=== PATIENT | female | born 1990 | race Caucasian/White ===

== ENCOUNTER → 2018-10-30 14:40 | Outpatient (CLI) | payer BC, MEDICAID, SELFPAY ==
[2017-04-03 06:49] VITALS: BMI 35.9
[2018-11-05 10:51] LABS: HPV Reflexed? NOT INDICATED
== END ==
PROVIDERS: Family Provider Family Medicine; PCP Family Medicine; Visit Provider Obstetrics & Gynecology
DX: Z12.4 Encounter for screening for malignant neoplasm of cervix (principal)
CPT/HCPCS: 88175; G0145

== ENCOUNTER 2018-11-08 07:52 | Emergency (ER) | payer BC, MEDICAID, SELFPAY ==
[2018-11-08 07:54] VITALS: PULSE 87; RESP 18; TEMP 36.1; O2SAT 98; BMI 29.7
[2018-11-08 07:56] VITALS: BP 118/42
[2018-11-08] MEDS: Dicyclomine 10 MG Capsule 20 MG PO (08:27)
[2018-11-08] MEDS: Ondansetron 4 MG/2 ML Vial IV (08:27)
[2018-11-08 08:43] LABS: Bacteria 0 SEEN /hpf (None Seen); Mucous, Urine 0 SEEN /hpf (<or=2+); Red Blood Cells-Urine 0 SEEN /hpf (0-5); White Blood Cells 0 SEEN /hpf (0-5)
[2018-11-08 08:58] LABS: Internal QC Validated? YES +Cl - CLEAR BKGD; Pregnancy, Urine Negative Negative
[2018-11-08 09:03] LABS: Color, Urine Yellow (Yellow); Glucose, Dipstick Normal (Normal); Ketone-Dipstick Negative (Negative); Leukocyte Esterase-Dipstick 25 /ul (Negative); Nitrite-Dipstick Negative (Negative); Occult Blood-Urine 25 /ul (Negative); Protein-Dipstick Negative (Negative); Urine Bilirubin Dipstick Negative (Negative); Urine Clarity Sl. Cloudy (Clear); Urine Urobilinogen Normal (Normal)
[2018-11-08 09:04] LABS: Squamous Epithelial Cells - UA 5-10 SEEN /hpf (5-10)
[2018-11-08 09:06] LABS: ALB/GLOB Ratio 0.8 RATIO (0.9-2.4); AST(SGOT) 35 U/L (15-37); Alanine Aminotransfer ALT/SGPT 29 U/L (13-56); Albumin, Serum 3.3 g/dL (3.2-5.0); Alkaline Phosphatase 87 U/L (45-117); Anion Gap 7 (5-15); BUN 9 mg/dL (7-18); BUN/Creat Ratio 13.6 RATIO (10-20); Calcium,Total 8.6 mg/dL (8.5-10.1); Chloride 109 mmol/L (98-107); Creatinine, Serum 0.66 mg/dL (0.55-1.02); EST Glomerular Filtration Rate 113 mL/min (>60); Est Glom Filt Rate - Afr Amer 137 mL/min (>60); Estimated Creatinine Clearance 110.56 ml/min; Globulin 3.9 g/dL (2.2-4.2); Glucose 87 mg/dL (74-106); Lipase 57 U/L (73-393); Potassium 4.4 mmol/L (3.5-5.1); Protein, Total 7.2 g/dL (6.4-8.2); Sodium Level 139 mmol/L (136-145)
--- NOTE | 2018-11-08 09:06 | ED.VISSUMM ---
- ER Visit Summary Date of Service: 11/08/18 Chief Complaint: Abdominal pain History of Present Illness: The patient is a 28 F who states that beginning Saturday at work she is had severe upper abdominal pain across the abdomen going into her back. She had vomiting this morning at 070 0 hours. She notes constipation. She notes that this type of pain is been present off and on for several weeks. Though it has not been this bad until Saturday. She states that she always saw CASHIERS SUPERVISOR. It was felt not to be related to her control. She is a smoker. She did have some alcohol last night. No fevers. She has no surgical history. Physical Examination: Afebrile vital signs are stable Gen: Well-nourished well-developed patient is sitting on the bed with her knees drawn up. Head: Normocephalic atraumatic Eyes: Perrl EOMI ENT: TMs clear no rhinorrhea moist mucous membranes Neck: Supple no lymphadenopathy no JVD nontender CVS: Regular rate rhythm no murmurs normal S1-S2 Respiratory: No distress clear to auscultation bilaterally chest nontender Abdomen: Soft diffusely tender nondistended normal bowel sounds no masses Back: Nontender Extremity: Nontender no edema Skin: Normal color no rash Neuro: alert orientated ?3 CN II-XII intact normal strength sensation reflexes gait cerebellar Psych: Normal affect normal mood Test Results: White count returns elevated at 18.1. Normal liver and lipase. test negative. CT down pelvis demonstrates cholelithiasis and possibly pericholecystic fluid. Gallbladder ultrasound was obtained which demonstrates cholelithiasis no pericholecystic fluid negative Brennan sign. There is concern for choledocholithiasis. Repeat white blood cell count is now normal. Her pain is improved after Bentyl Zofran Toradol and morphine. I spoke with on-call surgery. Patient will be started on Pepcid [place] and Zofran with follow-up in the office return if worsening or concerns. Impression: 1. Acute abdominal pain 2. Cholelithiasis This note was generated with [employer] dictation software. It may contain incorrect words, spelling, and punctuation that were not noted in review of the chart prior to signing ED Disposition - Plan for ED Patient: Disposition: Home or Assisted Living Instructions: What are Gallstones? Prescriptions: Hydrocodone Bitart/Apap 5-325 [[place] 5MG-325MG] 1 tab PO Q6H PRN PRN 3 Days #12 tab PRN Reason: Pain Ondansetron [Zofran Odt] 4 mg PO Q6H PRN PRN #20 tab PRN Reason: Nausea Famotidine [Pepcid] 20 mg PO BID #28 tab Referrals: Kimberly Barger MD [STAFF PHYSICIAN] - (call on Saturday to arrange follow up)
[2018-11-08 09:15] LABS: Absolute Lymphocyte Count 1.45 X10^3/ul (0.83-4.51); Absolute Neutrophil Count 15.6 X10^3/uL (2.0-7.7); Basophil# 0.03 X10^3/uL; Basophil% 0.2 % (0-1); Eosinophil# 0.16 X10^3/uL; Eosinophils% 0.9 % (0-5); Hematocrit 42.2 % (37-47); Hemoglobin 13.7 g/dl (12.0-15.0); Lymphocyte # 1.45 X10^3/ul (4.0); Mean Corp Hgb Conc 32.5 g/gl (32-36); Mean Corpuscular Hgb 29.1 pg (27.0-32.0); Mean Corpuscular Volume 89.6 fL (81-99); Mean Platelet Vol. 9.8 fl (6.2-12.0); Monocyte# 0.74 X10^3/uL; Monocyte% 4.1 % (0-10); Neutrophil # 15.62 X10^3/uL (2.7-7.7); Neutrophil % 86.4 % (47-70); Platelet Count 279 K/mm3 (150-450); RBC Distribution Width CV 13.9 % (11.6-14.6); RBC Distribution Width SD 44.8 fl (35.1-43.9); Red Blood Count 4.71 M/mm3 (4.2-5.4); White Blood Count 18.1 K/mm3 (4.4-11.0)
[2018-11-08 09:16] LABS: POSITIVE COUNT NO; POSITIVE DIFFERENTIAL NO; POSITIVE MORPHOLOGY NO
--- NOTE | 2018-11-08 09:20 | CT_ITS ---
STUDY: CT ABDOMEN AND PELVIS WITH CONTRAST REASON FOR EXAM: Female, 28 years old. Upper abdominal pain radiating to back for several weeks worse over the last 3 days, leukocytosis RADIATION DOSAGE (If Supplied By Facility): CTDIvol = ( 14.40 ) mGy, DLP = ( 870.36 ) mGycm TECHNIQUE: Transaxial images were obtained from the dome of the diaphragm to the symphysis pubis with oral contrast. 100mL ml of Isovue 300 contrast was administered. Sagittal and coronal images were reconstructed. Individualized dose optimization techniques were used for this CT. COMPARISON: None. FINDINGS: The visualized lung bases are unremarkable. The visualized portions of the heart are within normal limits. Normal liver. The gallbladder is distended with trace pericholecystic fluid evident on coronal image 41. There are linear calcifications within the gallbladder wall, particularly at the fundus. Normal spleen. Normal pancreas. Normal bilateral adrenal glands. Normal right kidney. Normal left kidney. Normal visualized stomach. Normal small intestine. Normal colon. The appendix is visualized and appears normal. Normal abdominal aorta. Normal inferior vena cava. Normal retroperitoneum. Normal urinary bladder. The uterus is retroflexed. No pelvic free fluid. Simple appearing dominant follicle or cyst of the left ovary measures 3.4 cm. Normal abdominal wall. Normal osseous structures. CT/Abdomen/Pelvis WITH Contrast IMPRESSION: 1. Trace pericholecystic fluid suggests possibility of cholecystitis (based on history of right upper quadrant pain) but can also be seen in other processes (hepatitis, hypoalbuminemia, etc.). 2. Gallbladder wall calcifications (porcelain gallbladder). Electronically Signed: Govind Starkey MD at 11:48 EST , Service support ,
[2018-11-08 10:04] VITALS: BP 114/60; PULSE 69; RESP 16; O2SAT 100
[2018-11-08] MEDS: Ketorolac 30 MG/ML Syringe IV (10:42)
--- NOTE | 2018-11-08 11:30 | US_ITS ---
STUDY: ABDOMINAL ULTRASOUND - RIGHT UPPER QUADRANT REASON FOR VISIT: Female, 28 years old. Right upper quadrant pain for a couple weeks TECHNIQUE: Ultrasound evaluation of the right upper quadrant was performed with real-time and static pace-scale imaging. TECHNICAL QUALITY: Adequate. COMPARISON: None. FINDINGS: Liver: The liver measures 16 cm. There is normal echogenicity of the liver. The bile ducts are within normal limits. There is hepatic color flow. The direction of portal flow is hepatopetal. There is no demonstrated mass lesion. Gallbladder: Normal distended gallbladder. The gallbladder wall measures 2.5 mm. There is a negative sonographic Brennan's sign. There is no pericholecystic fluid. There are multiple echogenic structures within the gallbladder, consistent with multiple gallstones. Tiny nonshadowing, nonmobile echogenic foci of the gallbladder wall could represent small polyps, most commonly cholesterol polyps. These measure less than 5 mm. Common Bile Duct (C.B.D.): The common bile duct measures 4.5 mm. Very small echogenic focus in the common duct is suggested (with an arrow) by technologist on image timed 12:22:22. Pancreas: There is normal echogenicity of the pancreas. There is no demonstrated pancreatic mass or cyst. Right Kidney: Normal size of the right kidney. The right kidney measures 9.8 cm. Normal renal cortex. The right cortex measures 1.4 cm. There is no demonstrated renal mass or cyst. There is no right hydronephrosis. US/Gallbladder IMPRESSION: 1. Cholelithiasis without sonographic evidence of acute cholecystitis. 2. Possible tiny (2 mm) choledocholithiasis. No intrahepatic or extrahepatic bile duct dilation. 3. Subcentimeter gallbladder wall polyps, likely cholesterol polyps. Electronically Signed: Govind Starkey MD at 13:02 EST , Service support ,
[2018-11-08 12:52] VITALS: BP 116/73; PULSE 61; RESP 14; O2SAT 100
[2018-11-08] MEDS: Morphine 4 MG/ML Syringe IV (13:49)
[2018-11-08 14:05] LABS: Absolute Lymphocyte Count 1.62 X10^3/ul (0.83-4.51); Absolute Neutrophil Count 7.7 X10^3/uL (2.0-7.7); Basophil# 0.01 X10^3/uL; Basophil% 0.1 % (0-1); Eosinophil# 0.03 X10^3/uL; Eosinophils% 0.3 % (0-5); Hematocrit 40.8 % (37-47); Hemoglobin 13.4 g/dl (12.0-15.0); Lymphocyte # 1.62 X10^3/ul (4.0); Lymphocyte % 16.4 % (19-41); Mean Corp Hgb Conc 32.8 g/gl (32-36); Mean Corpuscular Hgb 29.5 pg (27.0-32.0); Mean Corpuscular Volume 89.9 fL (81-99); Mean Platelet Vol. 9.4 fl (6.2-12.0); Monocyte# 0.48 X10^3/uL; Monocyte% 4.9 % (0-10); Neutrophil # 7.69 X10^3/uL (2.7-7.7); Platelet Count 259 K/mm3 (150-450); RBC Distribution Width CV 13.8 % (11.6-14.6); RBC Distribution Width SD 44.9 fl (35.1-43.9); Red Blood Count 4.54 M/mm3 (4.2-5.4); White Blood Count 9.9 K/mm3 (4.4-11.0)
[2018-11-08 14:16] LABS: Neutrophil % 78.1 % (47-70); POSITIVE COUNT YES; POSITIVE DIFFERENTIAL YES; POSITIVE MORPHOLOGY YES
== END 2018-11-08 14:59 | disposition home or self-care (01) ==
PROVIDERS: Emergency Provider Emergency Medicine
DX: R10.9 Unspecified abdominal pain (principal); K80.70 Calculus of gallbladder and bile duct without cholecystitis without obstruction; K59.00 Constipation, unspecified; F17.200 Nicotine dependence, unspecified, uncomplicated; Z79.3 Long term (current) use of hormonal contraceptives
CPT/HCPCS: 36415; 74177; 76705; 80053; 81001; 81025; 83690; 85025; 96374; 96375; 99284; Q9967; A4216; J2405

== ENCOUNTER → 2018-11-10 10:13 | Outpatient (CLI) | payer BC, MEDICAID, SELFPAY ==
[2018-11-08 07:54] VITALS: BMI 29.7
[2018-11-10 10:59] LABS: AST(SGOT) 31 U/L (15-37); Alanine Aminotransfer ALT/SGPT 104 U/L (13-56); Albumin, Serum 3.5 g/dL (3.2-5.0); Alkaline Phosphatase 100 U/L (45-117); Amylase 34 U/L (25-115); Bilirubin, Direct 0.11 mg/dL (0.00-0.30); Globulin 3.9 g/dL (2.2-4.2); Protein, Total 7.4 g/dL (6.4-8.2)
[2018-11-10 11:45] LABS: Lipase 70 U/L (73-393)
[2018-11-10 18:20] LABS: Xtra Tube EP Lab EXTRA TUBE
== END ==
PROVIDERS: Referring Provider Surgery; Visit Provider Surgery
DX: K80.20 Calculus of gallbladder without cholecystitis without obstruction (principal); R11.10 Vomiting, unspecified; R10.11 Right upper quadrant pain
CPT/HCPCS: 36415; 80076; 82150; 83690

== ENCOUNTER 2018-11-12 06:18 | Day surgery (SDC) | payer BC, MEDICAID, SELFPAY ==
[2018-11-10 11:08] VITALS: BMI 29.7
[2018-11-12] VITALS (8 sets, daily range): BP systolic 82–101; BP diastolic 42–63; PULSE 74–100; RESP 16–18; TEMP 36.4–36.8; O2SAT 95–99; BMI 29.1
[2018-11-12 06:50] LABS: Internal QC Validated? YES +Cl - CLEAR BKGD; Pregnancy, Urine Negative Negative
--- NOTE | 2018-11-12 07:30 | EGD_PTH ---
PATIENT: BRITTNEY MANUEL LOC: EN U#:[id number] AGE/SX: ROOM: RE11/12/[address]: Dr. Kimberly Barger MD : 1990 BED: DIS: 11/12/2018 SPEC #: [id number] RECD: 11/12/18 10:28 STATUS: BIJU TOM #: [id number] ANA LILIA: 11/12/18 07:[address]: Kimberly Barger DEPT: SURGICAL PATHOLOGY RECD BY: Nash Solares ENTERED: 11/12/18 11:45 SP TYPE: EGD BIOPSY OTHR DR: Jessica Primary Care Phys Tissues: Gastric mucous membrane Procedures: Surgery Specimen Level IV HEADER OPERATION: EGD ([facility] PRE-OP DIAGNOSIS: LUQ pain, RUQ pain, epigastric pain, cholelithiasis TISSUE SUBMITTED: Biopsy gastric antrum, H. pylori and path MICROSCOPIC DIAGNOSIS Gastric antrum, biopsy: Mild gastritis. See microscopic description and comment. ARGENIS:chidi 11/13/18 COMMENT The results of immunohistochemistry for Helicobacter pylori will be reported separately ([id number]). MICROSCOPIC DESCRIPTION Slides are reviewed. The specimen shows fragments of gastric mucosa with chronic inflammatory cell infiltrates in the lamina propria consisting of lymphocytes and plasma cells, consistent with mild chronic gastritis. GROSS DESCRIPTION Received in fixative is one container labeled with the patient's name and designated biopsy gastric antrum. The specimen consists of one irregular fragment of light agustin soft tissue that measures 0.2 x 0.1 x 0.1 cm. The specimen is totally submitted in one cassette. / CE:chidi 11/12/18 TC:3 CPT: 79282
--- NOTE | 2018-11-12 07:30 | IMM_PTH ---
PATIENT: BRITTNEY MANUEL LOC: EN U#:[id number] AGE/SX: ROOM: RE11/12/[address]: Dr. Kimberly Barger MD : 1990 BED: DIS: 11/12/2018 SPEC #: [id number] RECD: 11/12/18 14:43 STATUS: BIJU TOM #: [id number] ANA LILIA: 11/12/18 07:[address]: Kimberly Barger DEPT: IMMUNOHISTOCHEMISTRY RECD BY: Teresa Kaiser ENTERED: 11/12/18 14:44 SP TYPE: IMMUNO OTHR DR: No Primary Care Phys Tissues: Stomach, NOS Procedures: H Pylori (initial) PHYSICIAN & INSTITUTION [place] [id number] SPECIMEN INFORMATION: Tissue Source: EGD ([facility] [place]) Clinical Info: LUQ pain, RUQ pain, epigastric pain, cholelithiasis Specimen Number: [id number] CPT code: 63966 METHODOLOGY: Deparaffinized sections of prefer/formalin-fixed tissue or PAP/DQ stained slides are incubated with monoclonal/polyclonal antibodies/oligonucleotide probes. Localization is made via biotin free immunoperoxidase method. Appropriate controls are performed and reacted as expected. Results on target cell population are indicated in the following table: RESULTS: ANTIBODY / CLONE RESULT H Pylori (polyclonal) negative These tests were developed and their performance characteristics determined by [facility]. They may not have been cleared or approved by the U.S. Food and Drug Administration. The FDA has determined that such clearance or approval is not necessary. INTERPRETATION: Gastric antrum, biopsy: Negative for Helicobacter pylori organisms. ARGENIS:chidi 11/13/18
--- NOTE | 2018-11-12 07:42 | OP.ENDO_ITS ---
11/12/2018 Defined Not Re : Upper GI endoscopy procedure for Kathrin Alves Dear Not This procedure was performed on Monday, November 12, 2018. My impressions and recommendations are as follows: Impressions : - Normal duodenal bulb, first portion of the duodenum, second portion of the duodenum and third portion of the duodenum. - Erythematous mucosa in the antrum. Biopsied. - Z-line regular, 39 cm from the incisors. - The examination was otherwise normal. Recommendations : - Await pathology results. - Discharge patient to home. - Use Protonix (pantoprazole) 40 mg PO daily. - Continue present medications. My findings are described in the full procedure note, which is enclosed. If I can be of further assistance, please feel free to contact me at Doctor phone number(s): , Work: . Sincerely, MD Kimberly Enriquez MD 11/12/2018 7:42:27 AM This report has been signed electronically.
== END 2018-11-12 08:37 | disposition home or self-care (01) ==
LOC: EN 06:19 → AC 06:20
PROVIDERS: Anesthesiology; Referring Provider Surgery; Visit Provider Surgery
PROC: 0DJ08ZZ Inspection of Upper Intestinal Tract, Via Natural or Artificial Opening Endoscopic (ICD-10-PCS; CPT 43235; principal; 2018-11-12 07:25)
DX: K29.70 Gastritis, unspecified, without bleeding (principal); K80.20 Calculus of gallbladder without cholecystitis without obstruction; F17.200 Nicotine dependence, unspecified, uncomplicated; Z79.3 Long term (current) use of hormonal contraceptives; Z79.899 Other long term (current) drug therapy
CPT/HCPCS: 43239; 81025; 88305; 88342; J7120

== ENCOUNTER 2018-11-13 16:31 | Observation (INO) | payer BC, MEDICAID, SELFPAY ==
[2018-11-12 06:45] VITALS: BMI 29.1
--- NOTE | 2018-11-12 15:13 | PCM.HP.BLA ---
History and Physical Date of Admission: 11/13/18 Intake Vital Signs 11/10/18 Body Mass Index (BMI) 29.7 11/10/18 Height 5 ft 4 in 11/10/18 Weight: 172 lb 11/10/18 Body Mass Index (BMI) 29.5 11/10/18 Blood Pressure 101/71 11/10/18 Blood Pressure Location Rt brachial 11/10/18 Blood Pressure Position Sitting 11/10/18 Respiratory Rate 18 11/10/18 Pulse Rate 92 Intake Visit Reasons: FU ER CHOLELITHIASIS Allergies erythromycin base Allergy (Severe, Verified 11/10/18 11:07) Anaphylaxis acetaminophen [From Tylenol-Codeine] Allergy (Verified 11/10/18 11:07) Anaphylaxis codeine [From Tylenol-Codeine] Allergy (Verified 11/10/18 11:07) Anaphylaxis Penicillins Allergy (Verified 11/10/18 11:07) Anaphylaxis Medications Control 1 tab PO DAILY 11/08/18 [History Confirmed 11/10/18] Famotidine [Pepcid] 20 mg PO BID #28 tab 11/08/18 [Rx Confirmed 11/10/18] Hydrocodone Bitart/Apap 5-325 [[place] 5MG-325MG] 1 tab PO Q6H PRN PRN 3 Days #12 tab 11/08/18 [Rx Confirmed 11/10/18] Ondansetron [Zofran Odt] 4 mg PO Q6H PRN PRN #20 tab 11/08/18 [Rx Confirmed 11/10/18] pantoprazole 40 mg tablet,delayed release 40 mg PO DAILY #30 tab 11/10/18 [Rx Confirmed 11/10/18] PFSH- pt denies Medical History (spontaneous vaginal delivery) (Acute) 40 weeks gestation of (Acute) Vomiting (Acute) RUQ pain (Acute) Family History Grandmother Diabetes Grandfather Heart disease Father Hypertension CAD (coronary artery disease) CVA (cerebral vascular accident) Social History Smoking Status: Current every day smoker alcohol intake: current alcohol intake frequency: holidays/special occasions only HPI HPI: BRITTNEY MANUEL, is a 28 F who presents to the office today for cholelithiasis/abdominal pain nausea vomiting. Patient states that a few weeks ago she started noticed increase flatus, vomiting and stomach pain that she could get of had a virus from her kids the stomach pain did improve some. However she has noticed more recently that she gets worse stomach pain around 1 or 2 AM in the morning while she is at work in the epigastric/right upper quadrant area. Patient states last time she ate prior to that would be about 10 PM and she does not really eat at work. Patient also will have occasional, upset stomach which results in diarrhea. Patient's had diarrhea twice today. Previous to this episode patient states she has had normal bowel movements no blood noted constipation. Patient does deny any burning in her esophagus. She does have a history of having epigastric pain when she is on her menses but her menses are quite irregular currently she is on her menses but this is the first time in 2 months. Patient is wondering the epigastric pain had anything to do with her control however she did see her CASINO FLOOR SUPERVISOR about this who did not think that was the issue. Patient currently states she is able to eat chicken/green beans okay and is also able to stay hydrated but does still have some nausea. In the ER on Saturday patient was given some pain meds, Bentyl, Zofran. CT abdomen pelvis was done which were called as slightly distended gallbladder with a little bit of calcification of the fundus wall and may be some pericholecystic fluid, ultrasound the gallbladder showed no pericholecystic fluid, small gallstones/polyps but normal GB wall of 2.5 mm and common bile duct of 3.7-4.5 mm-questionable choledocholithiasis however there is no dilated intra-or extrahepatic biliary ducts. Patient does show white blood cell count was 18 however repeat was 9.9 patient's LFTs were all within normal limits. patient's pain was improved and she was discharged from the ER for follow-up. Yesterday Pt underwent EGD, which only showed mild gastritis and was given protonix IV. Pt now c/o N/V and epigastric/RUQ pain after eating anything, but is able to drink liquids. ROS General General: No fatigue Gastro Gastrointestinal: Yes abdominal pain, Yes nausea or vomiting, Yes diarrhea, No constipation, No blood in stool, No acid reflux, No hemorrhoids, No ulcers, Yes gallbladder problem Exam Const General: cooperative, comfortable, no acute distress Resp Effort & Inspection: normal respiratory effort Cardio Rate: regular rate GI Inspection: non-distended Palpation: soft, no guarding, no hernias, tender (epigastric/RUQ, no PS) Assessment & Plan Problems 1. Epigastric abdominal pain R10.13 2. RUQ pain R10.11 3. Cholelithiasis K80.20 Plan Reviewed the anatomy with the patient and discussed the procedure: laparoscopic cholecystectomy with possible cholangiograms, possible open. Review risks including but not limited to bleeding, infection, hernia, bile leak, retained gallstones requiring another procedure ERCP- Endoscopic Retrograde Cholangiopancreatography, injury to another organ (bile ducts, common bile duct, small bowel, etc.), which may require transfer to tertiary facility and conversion to an open procedure. All questions were answered. Patient has been reexamined and there are no clinical changes. Kimberly Barger M.D. Pager: [phone] [facility] [address] [place] [address], [address] [place] [address] Office: [phone]
--- NOTE | 2018-11-12 15:19 | HP.PCM_ITS ---
History and Physical Date of Admission: 11/13/18 Intake Vital Signs 11/10/18 Body Mass Index (BMI) 29.7 11/10/18 Height 5 ft 4 in 11/10/18 Weight: 172 lb 11/10/18 Body Mass Index (BMI) 29.5 11/10/18 Blood Pressure 101/71 11/10/18 Blood Pressure Location Rt brachial 11/10/18 Blood Pressure Position Sitting 11/10/18 Respiratory Rate 18 11/10/18 Pulse Rate 92 Intake Visit Reasons: FU ER CHOLELITHIASIS Allergies erythromycin base Allergy (Severe, Verified 11/10/18 11:07) Anaphylaxis acetaminophen [From Tylenol-Codeine] Allergy (Verified 11/10/18 11:07) Anaphylaxis codeine [From Tylenol-Codeine] Allergy (Verified 11/10/18 11:07) Anaphylaxis Penicillins Allergy (Verified 11/10/18 11:07) Anaphylaxis Medications Control 1 tab PO DAILY 11/08/18 [History Confirmed 11/10/18] Famotidine [Pepcid] 20 mg PO BID #28 tab 11/08/18 [Rx Confirmed 11/10/18] Hydrocodone Bitart/Apap 5-325 [[place] 5MG-325MG] 1 tab PO Q6H PRN PRN 3 Days #12 tab 11/08/18 [Rx Confirmed 11/10/18] Ondansetron [Zofran Odt] 4 mg PO Q6H PRN PRN #20 tab 11/08/18 [Rx Confirmed 11/10/18] pantoprazole 40 mg tablet,delayed release 40 mg PO DAILY #30 tab 11/10/18 [Rx Confirmed 11/10/18] PFSH- pt denies Medical History (spontaneous vaginal delivery) (Acute) 40 weeks gestation of (Acute) Vomiting (Acute) RUQ pain (Acute) Family History Grandmother Diabetes Grandfather Heart disease Father Hypertension CAD (coronary artery disease) CVA (cerebral vascular accident) Social History Smoking Status: Current every day smoker alcohol intake: current alcohol intake frequency: holidays/special occasions only HPI HPI: BRITTNEY MANUEL, is a 28 F who presents to the office today for cholelithiasis/abdominal pain nausea vomiting. Patient states that a few weeks ago she started noticed increase flatus, vomiting and stomach pain that she could get of had a virus from her kids the stomach pain did improve some. However she has noticed more recently that she gets worse stomach pain around 1 or 2 AM in the morning while she is at work in the epigastric/right upper quadrant area. Patient states last time she ate prior to that would be about 10 PM and she does not really eat at work. Patient also will have occasional, upset stomach which results in diarrhea. Patient's had diarrhea twice today. Previous to this episode patient states she has had normal bowel movements no blood noted constipation. Patient does deny any burning in her esophagus. She does have a history of having epigastric pain when she is on her menses but her menses are quite irregular currently she is on her menses but this is the first time in 2 months. Patient is wondering the epigastric pain had anything to do with her control however she did see her HYPERBARIC TECHNOLOGIST about this who did not think that was the issue. Patient currently states she is able to eat chicken/green beans okay and is also able to stay hydrated but does still have some nausea. In the ER on Saturday patient was given some pain meds, Bentyl, Zofran. CT abdomen pelvis was done which were called as slightly distended gallbladder with a little bit of calcification of the fundus wall and may be some pericholecystic fluid, ultrasound the gallbladder showed no pericholecystic fluid, small gallstones/polyps but normal GB wall of 2.5 mm and common bile duct of 3.7-4.5 mm-questionable choledocholithiasis however there is no dilated intra-or extrahepatic biliary ducts. Patient does show white blood cell count was 18 however repeat was 9.9 patient's LFTs were all within normal limits. patient's pain was improved and she was discharged from the ER for follow-up. Yesterday Pt underwent EGD, which only showed mild gastritis and was given protonix IV. Pt now c/o N/V and epigastric/RUQ pain after eating anything, but is able to drink liquids. ROS General General: No fatigue Gastro Gastrointestinal: Yes abdominal pain, Yes nausea or vomiting, Yes diarrhea, No constipation, No blood in stool, No acid reflux, No hemorrhoids, No ulcers, Yes gallbladder problem Exam Const General: cooperative, comfortable, no acute distress Resp Effort & Inspection: normal respiratory effort Cardio Rate: regular rate GI Inspection: non-distended Palpation: soft, no guarding, no hernias, tender (epigastric/RUQ, no PS) Assessment & Plan Problems 1. Epigastric abdominal pain R10.13 2. RUQ pain R10.11 3. Cholelithiasis K80.20 Plan Reviewed the anatomy with the patient and discussed the procedure: laparoscopic cholecystectomy with possible cholangiograms, possible open. Review risks including but not limited to bleeding, infection, hernia, bile leak, retained gallstones requiring another procedure ERCP- Endoscopic Retrograde Cholangiopancreatography, injury to another organ (bile ducts, common bile duct, small bowel, etc.), which may require transfer to tertiary facility and conversion to an open procedure. All questions were answered. Patient has been reexamined and there are no clinical changes. Kimberly Barger M.D. Pager: [phone] [facility] [address] [place] [address], [address] [place] [address] Office: [phone]
[2018-11-13] VITALS (14 sets, daily range): BP systolic 83–115; BP diastolic 39–69; PULSE 63–100; RESP 16–18; TEMP 36.5–37.2; O2SAT 94–100; BMI 29.0
--- NOTE | 2018-11-13 | GALL_PTH ---
PATIENT: BRITTNEY MANUEL LOC: MS3 U#:[id number] AGE/SX: 28/F ROOM: MS318 RE11/13/[address]: Dr. Kimberly Barger MD : 1990 BED: 1 DIS: 11/15/2018 SPEC #: [id number] RECD: 11/13/18 16:45 STATUS: BIJU TOM #: [id number] ANA LILIA: 11/13/18 00:[address]: Kimberly Barger DEPT: SURGICAL PATHOLOGY RECD BY: Norris Ruiz ENTERED: 11/14/18 10:55 SP TYPE: YESSENIA JORGENSEN DR: No Primary Care Phys Tissues: Gallbladder, NOS Procedures: Surgery Specimen Level III HEADER OPERATION: Laparoscopic cholecystectomy with IOC PRE-OP DIAGNOSIS: Cholelithiasis, right upper quadrant pain TISSUE SUBMITTED: Gallbladder and contents MICROSCOPIC DIAGNOSIS Gallbladder, cholecystectomy: Mild chronic cholecystitis and cholelithiasis. AM:chidi 11/17/18 MICROSCOPIC DESCRIPTION Slides are reviewed. GROSS DESCRIPTION Received is one container labeled with the patient's name and designated gallbladder and contents. The specimen consists of a gallbladder measuring 6.5 cm in length and 3 cm in diameter. The external surface is pink-agustin, smooth and glistening for the most part. Focally it is granular, hemorrhagic and contains cautery artifact. The gallbladder contains green-yellow mucoid bile and one mulberry yellow stone measuring 0.2 cm in greatest dimension. The mucosa is bile-stained and without any mass lesions. The gallbladder wall measures up to 0.2 cm in thickness. Belt And Link Shop Supervisor sections from the gallbladder and the cystic duct are submitted in one cassette. / SJ:chidi 11/14/18 TC:3 [facility]: [id number]
--- NOTE | 2018-11-13 12:12 | EKG12_ITS ---
Test Reason : PRE-OP Blood Pressure : / mmHG Vent. Rate : 105 BPM Atrial Rate : 105 BPM P-R Int : 142 ms QRS Dur : 076 ms QT Int : 352 ms P-R-T Axes : 047 045 051 degrees QTc Int : 465 ms Sinus tachycardia Otherwise normal ECG No previous ECGs available Confirmed by CODY SANDOVAL, DILEEP ([id number]), field map editor CHRISTINA GARCIA ([id number]) on 11/18/2018 1:48:33 PM Referred By: Kimberly Barger Confirmed By:DILEEP ROSS MD
[2018-11-13] MEDS: Ciprofloxacin 400 MG/200 ML BAG 200 MG IV ×2 (12:42→21:01)
[2018-11-13 13:09] LABS: AST(SGOT) 21 U/L (15-37); Alanine Aminotransfer ALT/SGPT 56 U/L (13-56); Albumin, Serum 3.6 g/dL (3.2-5.0); Alkaline Phosphatase 100 U/L (45-117); Bilirubin, Direct 0.13 mg/dL (0.00-0.30); Globulin 3.8 g/dL (2.2-4.2); Protein, Total 7.4 g/dL (6.4-8.2)
--- NOTE | 2018-11-13 13:30 | RAD_ITS ---
STUDY: INTRAOPERATIVE CHOLANGIOGRAM. REASON FOR EXAM: Female, 28 years old. Laparoscopic cholecystectomy. FLUOROSCOPY TIME (if supplied): (1:21) minutes/seconds TECHNIQUE: An intraoperative cholangiogram was performed by the surgeon. Contrast was administered. Imaging was submitted. COMPARISON: None. FINDINGS: The common bile duct is not dilated. No intraluminal filling defect is seen. There is free flow of contrast into the duodenum. RAD/Cholangiogram/ O R,Initial IMPRESSION: Unremarkable intraoperative cholangiogram. Electronically Signed: Ace Wilson, at 15:58 EST , Service support ,
[2018-11-13] MEDS: Bupivacaine Mpf 0.5% 30 ML VIAL (15:55)
--- NOTE | 2018-11-13 15:57 | PCM.OPRPT ---
Report of Operation Date of Procedure: 11/13/18 Pre-Operative Diagnosis: Cholelithiasis Post-Operative Diagnosis: Cholelithiasis, choledocholithiasis Surgery/Procedure Performed:: Laparoscopic cholecystectomy with cholangiogram rehabilitation program manager: Shane Dawkins Type of Anesthesia:: General/Supplemental Anesthesiologist: Zeyad Sandoval Special Medications: Cipro 400 mg IV x1 and Flagyl 500 mg IV x1 Specimen's removed: Gallbladder Estimated Blood Loss (mL): < 10 cc Fluids Replaced: 1300 cc Description of Procedure: Indications this is a 28 year-old female who developed abdominal pain/nausea/vomiting and on workup was found to have cholelithiasis, 4.5 mm common bile duct and normal LFTs. Laparoscopic cholecystectomy was elected. Description procedure: The patient was placed on operating table in supine position. General Anesthesia was induced. A timeout was completed verifying correct patient, procedure, site, position, social, and special equipment prior to beginning procedure. An orogastric tube was placed. The abdomen was prepped and draped in usual sterile fashion. An incision was made in the natural skin line above the umbilicus. The fascia was elevated and incised. The peritoneum was elevated and incised. Entry into the peritoneum was confirmed visually and no bowel was noted in the vicinity of the incision. Gamez trocar was placed. The abdomen was insufflated with carbon dioxide to a pressure of 12-15 mmHg. Patient tolerated insufflation well. The laparoscope was then inserted and abdomen inspected. No injuries from initial trocar placement were noted. Additional trochars were then inserted in the following locations 5 mm trocar in the epigastrium and 2 more 5 mm trochars along the right costal margin. The abdomen was inspected no abnormalities were found. The table is placed in reverse Trendelenburg position with the right side up. The adhesions between the gallbladder and omentum were lysed sharply. The dome of the gallbladder was grasped with atraumatic grasper passed through the lateral port and retracted over the dome of the liver. Infundibulum was then grasped with atraumatic grasper through the midclavicular port and retracted to the right lower quadrant. This maneuver exposed Calot's triangle. The peritoneum overlying the gallbladder infundibulum was then incised and cystic duct and artery identified and circumferentially dissected. Harrison catheter was used for cholangiograms. Cholangiograms did show a filling defect in the proximal common hepatic duct but good filling into the duodenum. The cystic duct and artery were then doubly clipped and divided close to the gallbladder. The gallbladder then dissected from its peritoneal attachments by electrocautery. Hemostasis was checked and the gallbladder and contained stones were removed using the endoscopic retrieval bag through the umbilical port. The gallbladder is passed off table as specimen. The gallbladder fossa was copiously irrigated with saline and hemostasis obtained. There is no evidence of bleeding from the gallbladder fossa or cystic artery leakage of bile from the cystic duct stump. Secondary trochars removed under direct vision. No bleeding was noted the trocar sites. The laparoscope was withdrawn and umbilical trocar removed. The abdomen was allowed to collapse. The fascia of the 12 mm trocar was closed with a [id number] 0 Vicryl suture. The skin was closed with sutures of 4-0 Monocryl and Steri-Strips. The orogastric tube was removed and the patient was extubated. The patient tolerated procedure well and was taken to the postanesthesia care unit in stable condition. - Complications none
[2018-11-13] MEDS: Morphine 2 MG/ML Syringe IV ×3 (18:35→21:37)
[2018-11-13] MEDS: 0.9% NaCl Peripheral Flush Adult/Peds IV ×4 (18:36→23:12)
[2018-11-13] MEDS: Ketorolac 15 MG/ML Vial IV (20:56)
[2018-11-13] MEDS: oxyCODONE 5 MG Tablet PO (23:08)
[2018-11-13] MEDS: Ondansetron 4 MG/2 ML Vial IV (23:12)
[2018-11-14] VITALS (11 sets, daily range): BP systolic 90–114; BP diastolic 50–72; PULSE 50–80; RESP 14–18; TEMP 36.1–37.1; O2SAT 94–98; BMI 29.9
[2018-11-14] MEDS: Lactated Ringers 1,000 ML 125 ML IV ×3 (01:09→16:02)
[2018-11-14] MEDS: Morphine 2 MG/ML Syringe IV ×2 (01:31→16:02)
[2018-11-14] MEDS: 0.9% NaCl Peripheral Flush Adult/Peds IV ×6 (01:32→18:31)
[2018-11-14] MEDS: oxyCODONE 5 MG Tablet PO ×2 (04:40→14:52)
[2018-11-14 06:39] LABS: Absolute Lymphocyte Count 1.45 X10^3/ul (0.83-4.51); Absolute Neutrophil Count 9.1 X10^3/uL (2.0-7.7); Basophil# 0.01 X10^3/uL; Basophil% 0.1 % (0-1); Eosinophil# 0.02 X10^3/uL; Eosinophils% 0.2 % (0-5); Hematocrit 39.1 % (37-47); Hemoglobin 12.5 g/dl (12.0-15.0); Lymphocyte # 1.45 X10^3/ul (4.0); Lymphocyte % 12.8 % (19-41); Mean Corpuscular Hgb 29.6 pg (27.0-32.0); Mean Corpuscular Volume 92.4 fL (81-99); Mean Platelet Vol. 10.2 fl (6.2-12.0); Monocyte# 0.71 X10^3/uL; Monocyte% 6.3 % (0-10); Neutrophil # 9.09 X10^3/uL (2.7-7.7); Neutrophil % 80.2 % (47-70); Platelet Count 271 K/mm3 (150-450); RBC Distribution Width CV 13.4 % (11.6-14.6); RBC Distribution Width SD 44.4 fl (35.1-43.9); Red Blood Count 4.23 M/mm3 (4.2-5.4); White Blood Count 11.3 K/mm3 (4.4-11.0)
[2018-11-14 06:44] LABS: POSITIVE COUNT NO; POSITIVE DIFFERENTIAL NO; POSITIVE MORPHOLOGY NO
[2018-11-14 06:51] LABS: AST(SGOT) 314 U/L (15-37); Alanine Aminotransfer ALT/SGPT 470 U/L (13-56); Albumin, Serum 2.7 g/dL (3.2-5.0); Alkaline Phosphatase 122 U/L (45-117); Anion Gap 11 (5-15); BUN 7 mg/dL (7-18); BUN/Creat Ratio 11.7 RATIO (10-20); Bilirubin, Direct 0.15 mg/dL (0.00-0.30); Chloride 108 mmol/L (98-107); EST Glomerular Filtration Rate 127 mL/min (>60); Est Glom Filt Rate - Afr Amer 154 mL/min (>60); Estimated Creatinine Clearance 121.62 ml/min; Globulin 3.3 g/dL (2.2-4.2); Glucose 106 mg/dL (74-106); Potassium 4.4 mmol/L (3.5-5.1); Sodium Level 139 mmol/L (136-145)
--- NOTE | 2018-11-14 08:30 | PN.SURG_ITS ---
Subjective: Patient still has nausea and received medication for it but it is better than initially after surgery, pain controlled with medication - Physical Exam General: Alert, Oriented x3, Cooperative HEENT: Atraumatic Abdomen: Soft, Non-Distended, Tender - Appropriately near incisions, incision clean dry and intact without sites Extremities: No clubbing, No cyanosis, No edema Vital Signs Temp Pulse Resp BP Pulse Ox 98.6 F 58 L 16 99/62 96 11/14/18 08:14 11/14/18 08:14 11/14/18 08:14 11/14/18 08:14 11/14/18 08:14 Oxygen Flow Rate (L/min) 3 Oxygen Delivery Method Room Air Weight: 168 lb 13.985 oz Body Mass Index (BMI) 29.0 Intake and Output for Last 24 Hours 11/12/18 11/13/18 11/14/18 23:59 23:59 23:59 Intake Total 2400 / 2400 2128 / 212 Balance 2400 / 2400 2128 / 2128 Laboratory Tests Past 24 Hrs 11/13/18 11/14/18 11/14/18 12:33 05:54 05:54 WBC 11.3 H RBC 4.23 Hgb 12.5 Hct 39.1 MCV 92.4 MCH 29.6 MCHC 32.0 RDW 13.4 RDW Differential 44.4 H Plt Count 271 MPV 10.2 Immature Gran % (Auto) 0.400 Neut % (Auto) 80.2 H Lymph % (Auto) 12.8 L [place] % (Auto) 6.3 Eos % (Auto) 0.2 Baso % (Auto) 0.1 Absolute Neuts (auto) 9.1 H Absolute Lymphs (auto) 1.45 Total Counted Not Reportable Sodium 139 Potassium 4.4 Chloride 108 H Carbon Dioxide 20.0 L Anion Gap 11 BUN 7 Creatinine 0.60 Estim Creat Clear Calc 121.62 Est GFR (MDRD) Af Amer 154 Est GFR (MDRD) Non-Af 127 BUN/Creatinine Ratio 11.7 Glucose 106 Calcium 8.0 L Total Bilirubin 0.40 0.60 Direct Bilirubin 0.13 0.15 AST 21 314 H ALT 56 470 H Alkaline Phosphatase 100 122 H Total Protein 7.4 6.0 L Albumin 3.6 2.7 L Globulin 3.8 3.3 Medical Necessity - Tobacco Use Smoking Status: Current every day smoker Tobacco Use: Cigarettes Assessment/Plan All Active Problems (Last Updated 11/10/18 @ 11:01 by Amanda Ribeiro) (spontaneous vaginal delivery) (Acute) 40 weeks gestation of (Acute) Vomiting (Acute) 28-year-old status post lap scopic cholecystectomy with cholangiograms, choledocholithiasis 1. Patient is n.p.o./IV fluids on Cipro Flagyl plan for an ERCP at noon with Dr. Lobato due to the choledocholithiasis seen on cholangiogram. Kimberly Barger M.D. Pager: [phone] [facility] [address] [place] [address], [facility], [address] [place] [address] Office: [phone]
--- NOTE | 2018-11-14 08:38 | PN.SURG_ITS ---
Subjective: She reports she is feeling sore this morning. No nausea or vomiting. - Physical Exam General: Alert, Oriented x3 Neck: No JVD Lungs: Normal air movement Cardiovascular: Regular rate, Regular Rhythm Abdomen: Soft, Tender Vital Signs Temp Pulse Resp BP Pulse Ox 98.6 F 58 L 16 99/62 96 11/14/18 08:14 11/14/18 08:14 11/14/18 08:14 11/14/18 08:14 11/14/18 08:14 Oxygen Flow Rate (L/min) 3 Oxygen Delivery Method Room Air Weight: 168 lb 13.985 oz Body Mass Index (BMI) 29.0 Intake and Output for Last 24 Hours 11/12/18 11/13/18 11/14/18 23:59 23:59 23:59 Intake Total 2400 / 2400 2128 Balance 2400 / 2400 2128 Laboratory Tests Past 24 Hrs 11/13/18 11/14/18 11/14/18 12:33 05:54 05:54 WBC 11.3 H RBC 4.23 Hgb 12.5 Hct 39.1 MCV 92.4 MCH 29.6 MCHC 32.0 RDW 13.4 RDW Differential 44.4 H Plt Count 271 MPV 10.2 Immature Gran % (Auto) 0.400 Neut % (Auto) 80.2 H Lymph % (Auto) 12.8 L [place] % (Auto) 6.3 Eos % (Auto) 0.2 Baso % (Auto) 0.1 Absolute Neuts (auto) 9.1 H Absolute Lymphs (auto) 1.45 Total Counted Not Reportable Sodium 139 Potassium 4.4 Chloride 108 H Carbon Dioxide 20.0 L Anion Gap 11 BUN 7 Creatinine 0.60 Estim Creat Clear Calc 121.62 Est GFR (MDRD) Af Amer 154 Est GFR (MDRD) Non-Af 127 BUN/Creatinine Ratio 11.7 Glucose 106 Calcium 8.0 L Total Bilirubin 0.40 0.60 Direct Bilirubin 0.13 0.15 AST 21 314 H ALT 56 470 H Alkaline Phosphatase 100 122 H Total Protein 7.4 6.0 L Albumin 3.6 2.7 L Globulin 3.8 3.3 Medical Necessity - Tobacco Use Smoking Status: Current every day smoker Tobacco Use: Cigarettes Assessment/Plan All Active Problems (Last Updated 11/10/18 @ 11:01 by Amanda Ribeiro) (spontaneous vaginal delivery) (Acute) 40 weeks gestation of (Acute) Vomiting (Acute) 28-year-old female with choledocholithiasis 1. Patient had a cholangiogram during laparoscopic cholecystectomy which showed a small stone in the common bile duct. Given the fact that her common bile duct is very small it is unlikely that this will pass on its own. I do recommend ERCP for stone removal and sphincterotomy. 2. I discussed ERCP in detail with the patient. I discussed the risks including but not limited to bleeding, infection, perforation of the bile duct or bowel, pancreatitis. The patient understands and is willing to proceed with ERCP this afternoon. As long as the stone is removed and the procedure goes well I will advance her diet and she can be discharged home this evening. Thom Lobato MD Pager: [facility] [address] [place] [address] [address] [place] [address] Office:
[2018-11-14] MEDS: Ketorolac 30 MG/ML Syringe IV ×2 (09:25→18:28)
[2018-11-14] MEDS: Scopolamine 1mg/72hr Patch 1 PATCH TD (09:25)
[2018-11-14] MEDS: Ciprofloxacin 400 MG/200 ML BAG 200 MG IV (09:33)
--- NOTE | 2018-11-14 10:59 | NURSING ---
report called to Jonathan Méndez at this time. Patient taken down for procedure.
--- NOTE | 2018-11-14 12:00 | RAD_ITS ---
STUDY: ERCP. REASON FOR EXAM: Female, 28 years old. Abdominal pain. FLUOROSCOPY TIME (if supplied): (2:02) minutes/seconds. Single image was provided. TECHNIQUE: An ERCP was performed by the surgeon. Imaging was submitted. COMPARISON: None. FINDINGS: The common bile duct is visualized. It is unremarkable. RAD/ERCP Biliary/Pancreas IMPRESSION: Unremarkable examination. Electronically Signed: Ace Wilson, at 8:26 EST , Service support ,
--- NOTE | 2018-11-14 12:54 | PCM.DC.GB ---
Discharge Diet: Light diet - advance as tolerated Discharge Activity: May not drive while taking narcotic pain medications. Lifting Restrictions: no lifting >20lbs x 4 weeks Call your doctor if your incision/area has: Continuous Slow Oozing, Sudden Increased Bleeding, Increased Pain/ Swelling, Increased Redness, Foul Smelling Discharge, Swelling at the incision site Call your doctor if you observe: Fever of 101 or Higher Additional Instructions: Okay to take ibuprofen 400-600 mg PO q6hr PRN along with the Percocet. Avoid Tylenol since there is already Tylenol in the Percocet. Take all pain meds with food. Percocet can cause constipation recommend taking daily stool softener (i.e. Colace/docusate) while taking the pain meds. Recommend starting 2-3 doses of MiraLAX tomorrow (11/15/18) if no bowel movement. If still no bowel movement the following day recommend taking magnesium citrate half the bottle and waiting 4-6 hours if still no results take the other half the bottle. Allergies/Adverse Reactions: Allergies erythromycin base Allergy (Severe, Verified 11/13/18 12:18) Anaphylaxis acetaminophen [From Tylenol-Codeine] Allergy (Verified 11/12/18 06:43) Anaphylaxis codeine [From Tylenol-Codeine] Allergy (Verified 11/13/18 12:18) Anaphylaxis Penicillins Allergy (Verified 11/13/18 12:18) Anaphylaxis Medications to take at Discharge Famotidine [Pepcid] 20 mg PO BID #28 tab 11/08/18 Ondansetron [Zofran Odt] 4 mg PO Q6H PRN PRN #20 tab 11/08/18 pantoprazole 40 mg tablet,delayed release 40 mg PO DAILY #30 tab 11/10/18 Norethindrone AC-Eth Estradiol [Norethind-Eth Estrad 1-0.02 mg] 1 each PO DAILY 11/11/18 Oxycodone HCl/Acetaminophen [Percocet 5/325] 1 - 2 tablet PO Q4H PRN PRN 5 Days #30 tablet 11/14/18 The following prescriptions were given: Oxycodone HCl/Acetaminophen [Percocet 5/325] 1 - 2 tablet PO Q4H PRN PRN 5 Days #30 tablet PRN Reason: Pain Primary Care Physician: Care Physician,No Primary [Primary Care Provider] - Test Results: Test results from this visit will be discussed in further detail at your follow-up appointment, if applicable. Please Follow Up With: Kimberly Barger MD - After 5 PM and on the weekends call [phone] with any concerns When: Call the office for a follow-up appointment in 2 weeks Proposed Discharge Date: 11/14/18
--- NOTE | 2018-11-14 12:57 | DCINST_ITS ---
Discharge Diet: Light diet - advance as tolerated Discharge Activity: May not drive while taking narcotic pain medications. Lifting Restrictions: no lifting >20lbs x 4 weeks Call your doctor if your incision/area has: Continuous Slow Oozing, Sudden Increased Bleeding, Increased Pain/ Swelling, Increased Redness, Foul Smelling Discharge, Swelling at the incision site Call your doctor if you observe: Fever of 101 or Higher Additional Instructions: Okay to take ibuprofen 400-600 mg PO q6hr PRN along with the Percocet. Avoid Tylenol since there is already Tylenol in the Percocet. Take all pain meds with food. Percocet can cause constipation recommend taking daily stool softener (i.e. Colace/docusate) while taking the pain meds. Recommend starting 2-3 doses of MiraLAX tomorrow (11/15/18) if no bowel movement. If still no bowel movement the following day recommend taking magnesium citrate half the bottle and waiting 4-6 hours if still no results take the other half the bottle. Allergies/Adverse Reactions: Allergies erythromycin base Allergy (Severe, Verified 11/13/18 12:18) Anaphylaxis acetaminophen [From Tylenol-Codeine] Allergy (Verified 11/12/18 06:43) Anaphylaxis codeine [From Tylenol-Codeine] Allergy (Verified 11/13/18 12:18) Anaphylaxis Penicillins Allergy (Verified 11/13/18 12:18) Anaphylaxis Medications to take at Discharge Famotidine [Pepcid] 20 mg PO BID #28 tab 11/08/18 Ondansetron [Zofran Odt] 4 mg PO Q6H PRN PRN #20 tab 11/08/18 pantoprazole 40 mg tablet,delayed release 40 mg PO DAILY #30 tab 11/10/18 Norethindrone AC-Eth Estradiol [Norethind-Eth Estrad 1-0.02 mg] 1 each PO DAILY 11/11/18 Oxycodone HCl/Acetaminophen [Percocet 5/325] 1 - 2 tablet PO Q4H PRN PRN 5 Days #30 tablet 11/14/18 The following prescriptions were given: Oxycodone HCl/Acetaminophen [Percocet 5/325] 1 - 2 tablet PO Q4H PRN PRN 5 Days #30 tablet PRN Reason: Pain Primary Care Physician: Care Physician,No Primary [Primary Care Provider] - Test Results: Test results from this visit will be discussed in further detail at your follow- up appointment, if applicable. Please Follow Up With: Kimberly Barger MD - After 5 PM and on the weekends call [phone] with any concerns When: Call the office for a follow-up appointment in 2 weeks Proposed Discharge Date: 11/14/18
--- NOTE | 2018-11-14 13:11 | OP.ENDO_ITS ---
11/14/2018 No Primary Care Physician Re : ERCP procedure for Kathrin Alves Dear Care Physician This procedure was performed on Wednesday, November 14, 2018. My impressions and recommendations are as follows: Impressions : - A biliary sphincterotomy was performed. - The biliary tree was swept and nothing was found. Recommendations : - Observe patient's clinical course. My findings are described in the full procedure note, which is enclosed. If I can be of further assistance, please feel free to contact me at Doctor phone number(s): , Work: . Sincerely, Thom Lboato MD 11/14/2018 1:11:11 PM This report has been signed electronically.
[2018-11-14] MEDS: Docusate Sodium 100 MG Capsule PO (16:02)
[2018-11-14] MEDS: Ondansetron 4 MG/2 ML Vial IV (18:28)
[2018-11-15 00:17] VITALS: BP 100/59; PULSE 57; RESP 18; TEMP 36.7; O2SAT 98
[2018-11-15] MEDS: Ketorolac 30 MG/ML Syringe IV ×2 (00:21→06:23)
[2018-11-15] MEDS: Lactated Ringers 1,000 ML 125 ML IV (00:23)
[2018-11-15 04:57] VITALS: BP 110/62; PULSE 52; RESP 16; TEMP 36.8; O2SAT 97
--- NOTE | 2018-11-15 05:13 | PN.SURG_ITS ---
Subjective: Patient is still painful but it has improved from yesterday. Objective: Dressings are dry her abdomen is soft there is no peritoneal signs identified - Physical Exam Vital Signs Temp Pulse Resp BP Pulse Ox 98.2 F 52 L 16 110/62 97 11/15/18 04:57 11/15/18 04:57 11/15/18 04:57 11/15/18 04:57 11/15/18 04:57 Oxygen Flow Rate (L/min) 3 Oxygen Delivery Method Room Air Weight: 175 lb 4.28 oz Body Mass Index (BMI) 29.9 Intake and Output for Last 24 Hours 11/13/18 11/14/18 11/15/18 23:59 23:59 23:59 Intake Total 2400 / 2400 5860 / 5860 1002 / 1002 Balance 2400 / 2400 5860 / 5860 1002 / 1002 Laboratory Tests Past 24 Hrs 11/14/18 11/14/18 05:54 05:54 WBC 11.3 H RBC 4.23 Hgb 12.5 Hct 39.1 MCV 92.4 MCH 29.6 MCHC 32.0 RDW 13.4 RDW Differential 44.4 H Plt Count 271 MPV 10.2 Immature Gran % (Auto) 0.400 Neut % (Auto) 80.2 H Lymph % (Auto) 12.8 L [place] % (Auto) 6.3 Eos % (Auto) 0.2 Baso % (Auto) 0.1 Absolute Neuts (auto) 9.1 H Absolute Lymphs (auto) 1.45 Total Counted Not Reportable Sodium 139 Potassium 4.4 Chloride 108 H Carbon Dioxide 20.0 L Anion Gap 11 BUN 7 Creatinine 0.60 Estim Creat Clear Calc 121.62 Est GFR (MDRD) Af Amer 154 Est GFR (MDRD) Non-Af 127 BUN/Creatinine Ratio 11.7 Glucose 106 Calcium 8.0 L Total Bilirubin 0.60 Direct Bilirubin 0.15 AST 314 H ALT 470 H Alkaline Phosphatase 122 H Total Protein 6.0 L Albumin 2.7 L Globulin 3.3 Medical Necessity - Tobacco Use Smoking Status: Current every day smoker Tobacco Use: Cigarettes Assessment/Plan All Active Problems (Last Updated 11/10/18 @ 11:01 by Amanda Ribeiro) (spontaneous vaginal delivery) (Acute) 40 weeks gestation of (Acute) Vomiting (Acute) We will see how she does with her breakfast and hopefully be able to discharge her around noon to 1:00
[2018-11-15 07:45] VITALS: BP 120/78; PULSE 40; PULSE 41; RESP 16; TEMP 36.9; O2SAT 98
--- NOTE | 2018-11-15 07:54 | NURSING ---
Assessment complete, see findings. Heart Rate 41 per monitor. This nurse listened to Heart and obtained 40 beats per min. Pt asymptomatic. Breakfast just arrived for pt. Will monitor how she does.
[2018-11-15] MEDS: HYDROcodone Bitartrate/Apap 5/325 Tablet PO ×2 (09:01→14:20)
--- NOTE | 2018-11-15 14:18 | NURSING ---
spoke with Dr. Tripp about pts blurred vision. pt states she has had it since before going down for the 2nd procedure. Pt means ERCP. pt states she can see, but when she reads it is blurry. Full Neuro assessment done this morning and recently this afternoon, and neuro assessment complete negative. Dr. Tripp aware and okay to discharge.
[2018-11-15] MEDS: Docusate Sodium 100 MG Capsule PO (14:21)
[2018-11-15 14:22] VITALS: BP 104/67; PULSE 60; RESP 18; TEMP 36.8; O2SAT 99
--- NOTE | 2018-11-15 14:25 | NURSING ---
Pt aware that Dr. Tripp wants her to follow up with her eye doctor regarding blurred vision when reading. Pt said she will make an appointment.
== END 2018-11-15 15:15 | disposition home or self-care (01) ==
LOC: MS3 11-14 08:13 → SDC 11-14 08:41
PROVIDERS: Surgery; Admitting Provider Surgery; Referring Provider Surgery; Visit Provider Surgery
PROC: (CPT 47610; principal; 2018-11-13 13:10)
DX: K80.10 Calculus of gallbladder with chronic cholecystitis without obstruction (principal); F17.210 Nicotine dependence, cigarettes, uncomplicated; K21.9 Gastro-esophageal reflux disease without esophagitis
CPT/HCPCS: 43262; 47563; 36415; 74300; 74330; 76000; 80048; 80076; 85025; 88304; 93005; 96361; 96365; 96366; 96367; 96375; 96376; 99218; 99406; J7120; A4216; G0378; G0379; J0744; J2405

== ENCOUNTER 2020-04-25 09:57 | Day surgery (SDC) | payer OTHER, MEDICAID, SELFPAY ==
--- NOTE | 2020-04-14 02:20 | HP_ITS ---
Intake Vital Signs 04/14/20 BMI 29.0 04/14/20 Height 5 ft 4 in 04/14/20 Weight: 180 lb 7 oz 04/14/20 BMI 30.9 04/14/20 BP 100/67 04/14/20 Blood Pressure Location Rt brachial 04/14/20 Position Sitting 04/14/20 Respiration 16 04/14/20 Pulse 91 04/14/20 Temp 97.8 F 04/14/20 Temp Source Temporal 04/14/20 Pulse Oximetry (%) 98 04/14/20 Oxygen Delivery Method room air Intake Visit Reasons: BLOATING, NAUSEA Chief Complaint: hematemesis/ hematochezia Teacher Vocal Required: No Is patient in pain?: No Allergies erythromycin base Allergy (Severe, Verified 04/14/20 14:15) Anaphylaxis acetaminophen [From Tylenol-Codeine] Allergy (Verified 04/14/20 14:15) Anaphylaxis codeine [From Tylenol-Codeine] Allergy (Verified 04/14/20 14:15) Anaphylaxis Penicillins Allergy (Verified 04/14/20 14:15) Anaphylaxis Medications NK 04/14/20 [History Confirmed 04/14/20] Is last menstrual period known: No Post menopausal: No Patient : No PFSH Medical History (spontaneous vaginal delivery) (Acute) 40 weeks gestation of (Acute) Vomiting (Acute) Anxiety and depression (Acute) GERD (gastroesophageal reflux disease) (Acute) RUQ pain (Acute) Surgical History History of laparoscopic cholecystectomy (Acute) History of esophagogastroduodenoscopy (EGD) (Acute) S/P laparoscopic cholecystectomy (Acute) Family History Grandmother Diabetes Grandfather Heart disease Father Hypertension CAD (coronary artery disease) CVA (cerebral vascular accident) Social History (Updated 04/14/20 @ 14:[address] Jarett Tripp MD) Smoking Status: Current every day smoker alcohol intake: current alcohol intake frequency: holidays/special occasions only HPI HPI Surgical H&P: Yes HPI: BRITTNEY MANUEL, is a 29 F who presents to the office today for Evaluation of nausea vomiting coffee grounds and having hematochezia. This patient is status post a laparoscopic cholecystectomy early in 2019 she was having symptoms of nausea vomiting epigastric abdominal pain back then she underwent an ERCP which was normal and was started on proton pump inhibitor and her symptoms gradually improved. She has been noticing it randomly over the last month that she has had increasing spontaneous coffee-ground emesis she has been having constipation as well as bright red rectal bleeding and she has been noticing some weight gain. The patient obviously has and continues to have had problems with red meats and fatty foods but recently has started to develop some Dairy issues as well. She has had no fevers chills and has not been complaining of any diarrhea. ROS General General: Yes weight change and fatigue; no appetite, colon cancer, breast cancer or weakness HEENT HEENT: No difficulty swallowing, eye injury, eye surgery, swollen glands or hoarseness Endo Endocrine: No thyroid disease, diabetes mellitus, thyroid cancer, Hair loss, heat intolerance or cold intolerance Musc Musculoskeletal: No back problems, arthritis, rheumatoid arthritis, gout or joint pain Cardio Cardiovascular: No murmur, pacemaker, heart disease, atrial fibrillation, high blood pressure, heart attack, heart stent, palpitations, shortness of breat with exertion or chest pain Psych Psychiatric: Yes depression and anxiety; no hearing voices Resp Respiratory: No shortness of breath, No sleep apnea, No cough, No COPD, No asthma, No emphysema, No wheezing Gastro Gastrointestinal: Yes abdominal pain, Yes nausea or vomiting, Yes diarrhea, Yes constipation, Yes blood in stool, Yes acid reflux, No hemorrhoids, No ulcers, No gallbladder problem, No black,tarry stools Jesus Hematologic: No blood thinners, No blood disorders, No bleeding, No anemia, No blood clots Neuro Neurologic: No weakness Exam Const General: no acute distress, well developed, well hydrated Orientation: oriented to person, oriented to place, oriented to time [facility] Head: normocephalic, atraumatic Ears: external ears normal Mouth: moist mucous membranes Eyes Sclera: sclerae normal Pupils: normal by confrontation Neck Neck: no lymphadenopathy noted Neck mass: No Thyroid: thyroid normal, symmetrical Chest Chest palpation & inspection: normal inspection of the chest Resp Effort & Inspection: normal respiratory effort Auscultation: clear to auscultation bilaterally Percussion: percussion normal Cardio Rate: regular rate Rhythm: regular rhythm Heart Sounds: no murmurs GI Palpation: soft, no hepatosplenomegaly, no masses, nontender Rectal Exam: other Other: Rectal exam deferred. Extrem General: normal to inspection, no clubbing, cyanosis or edema Assessment & Plan Problems 1. Coffee ground emesis K92.0 2. Hematochezia K92.1 3. Epigastric abdominal pain R10.13 Plan I have discussed the above with the patient. I have offered the patient colonoscopy As well as an EGD for evaluation. I have explained the risks/benefits of the procedure and described the procedure. I have discussed the risks with the patient, including but not limited to: infection, bleeding, perforation of the GI tract requiring emergency surgery, inability to complete the procedure, injury to any internal organs, complications of anesthesia, etc. - the patient understands and agrees to proceed. I have answered all the patient's questions to the patient's satisfaction and the patient has no further questions. The patient has been given instructions for the colon cleansing preparation. If these tests are negative then she will need to have a gastric emptying study. She is currently not on a proton pump inhibitor we will restart that after we complete the test. Orders Orders: Colonoscopy Today EGD Today Coding Level of Care Code Off vis,est,level 3 Diagnoses Coffee ground emesis K92.0 Hematochezia K92.1 Epigastric abdominal pain R10.13 COVID (Procedure Consent) Procedure Criteria Procedure Criteria: Yes Elective The surgeon/proceduralist and patient have discussed in detail the risk of exposure to and/or potential harm posed by the COVID-19 virus with having a surgery/procedure at this time versus the risk of? delaying the surgery/procedure. It is not possible to know either the risk of delaying the surgery or procedure or chance of getting an infection with perfect accuracy, but a joint decision was made between the patient and the surgeon/proceduralist ?to proceed at this time with the scheduled surgery/procedure as indicated on the consent form. 04/14/20 1421 <Electronically signed by Jarett bacon MD> Date _ Jarett Tripp MD I have re-examined the patient. There are no clinical changes since date of exam.
[2020-04-14 14:20] VITALS: BMI 29.0
[2020-04-21 11:16] LABS: Probe Check PASS; Specimen Processing Control PASS
[2020-04-25] VITALS (8 sets, daily range): BP systolic 84–104; BP diastolic 55–69; PULSE 80–97; RESP 15–16; TEMP 36.6–37.2; O2SAT 95–98; BMI 30.5
[2020-04-25 10:49] LABS: Internal QC Validated? YES +Cl - CLEAR BKGD; Pregnancy, Urine Negative Negative
[2020-04-25] MEDS: Lactated Ringers 1,000 ML 100 ML IV (10:57)
--- NOTE | 2020-04-25 11:30 | IMM_PTH ---
PATIENT: BRITTNEY MANUEL LOC: EN U#:[id number] AGE/SX: 30/F ROOM: RE04/25/[address]: Dr. Jarett Tripp MD : 1990 BED: DIS: 04/25/2020 SPEC #: [id number] RECD: 04/26/20 09:11 STATUS: BIJU RESp #: [id number] ANA LILIA: 04/25/20 11:[address]: Jarett Tripp DEPT: IMMUNOHISTOCHEMISTRY RECD BY: Teresa Kaiser ENTERED: 04/26/20 09:12 SP TYPE: IMMUNO OTHR DR: No Primary Care Phys Tissues: B - Stomach, NOS Procedures: H Pylori (initial) PHYSICIAN & INSTITUTION [place] [id number] SPECIMEN INFORMATION: Tissue Source: B - Antrum biopsy Clinical Info: Coffee ground emesis, hematochezia, epigastric abdominal pain Specimen Number: [id number] CPT code: 15627 METHODOLOGY: Deparaffinized sections of prefer/formalin-fixed tissue or PAP/DQ stained slides are incubated with monoclonal/polyclonal antibodies/oligonucleotide probes. Localization is made via biotin free immunoperoxidase method. Appropriate controls are performed and reacted as expected. Results on target cell population are indicated in the following table: RESULTS: ANTIBODY / CLONE RESULT Block B H Pylori (polyclonal) negative These tests were developed and their performance characteristics determined by [facility]. They may not have been cleared or approved by the U.S. Food and Drug Administration. The FDA has determined that such clearance or approval is not necessary. INTERPRETATION: B. Antrum biopsy: Negative for Helicobacter pylori organisms. SJ:chidi 04/27/20
--- NOTE | 2020-04-25 11:30 | EGD_PTH ---
PATIENT: BRITTNEY MANUEL LOC: EN U#:[id number] AGE/SX: 30/F ROOM: RE04/25/[address]: Dr. Jarett Tripp MD : 1990 BED: DIS: 04/25/2020 SPEC #: [id number] RECD: 04/25/20 12:03 STATUS: BIJU TOM #: [id number] ANA LILIA: 04/25/20 11:[address]: Jarett Tripp DEPT: SURGICAL PATHOLOGY RECD BY: Nash Solares ENTERED: 04/25/20 12:19 SP TYPE: EGD BIOPSY OTHR DR: Jessica Primary Care Phys Tissues: A - COLON BIOPSY B - Gastric mucous membrane Procedures: Surgery Specimen Level IV HEADER OPERATION[place] [place] DIAGNOSIS: Coffee ground emesis, hematochezia, epigastric abdominal pain TISSUE SUBMITTED: A - Small bowel biopsy, B - Antrum biopsy for histo and H. pylori MICROSCOPIC DIAGNOSIS A. Small bowel biopsy: A fragment of duodenal mucosa, no pathologic diagnosis. B. Antrum, biopsy: Minimal gastritis. See microscopic description and comment. ARGENIS:chidi 04/26/20 COMMENT B. The results of immunohistochemistry for Helicobacter pylori will be reported separately ([id number]). MICROSCOPIC DESCRIPTION Slides are reviewed. B. The specimen shows fragments of gastric mucosa with chronic inflammatory cell infiltrates in the lamina propria consisting of lymphocytes and plasma cells, consistent with minimal chronic gastritis. GROSS DESCRIPTION A - Received in fixative is one container labeled with the patient's name and designated small bowel biopsy. The specimen consists of one irregular fragment of light agustin soft tissue that measures 0.6 x 0.2 x 0.1 cm. The specimen is totally submitted in one cassette. B - Received in fixative is one container labeled with the patient's name and designated antrum biopsy. The specimen consists of one irregular fragment of light agustin soft tissue that measures 0.5 x 0.3 x 0.1 cm. The specimen is totally submitted in one cassette. / ARGENIS:chidi 04/25/20 TC:3 CPT: 55105 x2
--- NOTE | 2020-04-25 11:32 | OP.EGD_ITS ---
Patient Name: Kathrin Alves Procedure Date: 04/25/2020 11:05 AM Date of : 1990 Age: 30 Procedure: Upper GI endoscopy Indications: Epigastric abdominal pain, Coffee-ground emesis, Hematochezia Providers: Jarett Tripp MD Referring MD: Jarett Tripp MD Medicines: See the Anesthesia note for documentation of the administered medications Patient Profile: This is a 30 year old female. Refer to note in patient chart for documentation of history and physical. Complications: No immediate complications. Procedure: Pre-Anesthesia Assessment: - Prior to the procedure, a History and Physical was performed, and patient medications and allergies were reviewed. The patient's tolerance of previous anesthesia was also reviewed. The risks and benefits of the procedure and the sedation options and risks were discussed with the patient. All questions were answered, and informed consent was obtained. Prior Anticoagulants: The patient has taken no previous anticoagulant or antiplatelet agents. ASA Grade Assessment: II - A patient with mild systemic disease. After reviewing the risks and benefits, the patient was deemed in satisfactory condition to undergo the procedure. After obtaining informed consent, the endoscope was passed under direct vision. Throughout the procedure, the patient's blood pressure, pulse, and oxygen saturations were monitored continuously. The Endoscope was introduced through the mouth, and advanced to the second part of duodenum. The upper GI endoscopy was accomplished without difficulty. The patient tolerated the procedure well. Scope In: 11:13:09 AM Scope Out: 11:15:42 AM Total Procedure Duration Time 0 hours 2 minutes 33 seconds Findings: The examined esophagus was normal. Patient may need to have esophageal manometry if her epigastric pain persists. Diffuse mildly erythematous mucosa without bleeding was found in the prepyloric region of the stomach. Biopsies were taken with a cold forceps for Helicobacter pylori testing. The examined duodenum was normal. Biopsies for histology were taken with a cold forceps for evaluation of celiac disease. Impression: - Normal esophagus. - Erythematous mucosa in the prepyloric region of the stomach. Biopsied. - Normal examined duodenum. Biopsied. Recommendation: - Await pathology results. - Repeat upper endoscopy (date not yet determined) for surveillance. - Return to my office in 1 week. - Continue present medications. Procedure Code(s): --- Professional --- 00478, Esophagogastroduodenoscopy, flexible, transoral; with biopsy, single or multiple Diagnosis Code(s): --- Professional --- K31.89, Other diseases of stomach and duodenum R10.13, Epigastric pain K92.0, Hematemesis K92.1, Melena (includes Hematochezia) CPT copyright 2017 [employer]. All rights reserved. The codes documented in this report are preliminary and upon dyeing machine back tender review may be revised to meet current compliance requirements. MD Jarett Arrieta MD 04/25/2020 11:31:48 AM This report has been signed electronically. Number of Addenda: 0 Note Initiated On: 04/25/2020 11:05 AM
--- NOTE | 2020-04-25 11:32 | OP.CCLET_ITS ---
04/25/2020 No Primary Care Physician Re : Upper GI endoscopy procedure for Kathrin Alves Dear Care Physician This procedure was performed on Saturday, April 25, 2020. My impressions and recommendations are as follows: Impressions : - Normal esophagus. - Erythematous mucosa in the prepyloric region of the stomach. Biopsied. - Normal examined duodenum. Biopsied. Recommendations : - Await pathology results. - Repeat upper endoscopy (date not yet determined) for surveillance. - Return to my office in 1 week. - Continue present medications. My findings are described in the full procedure note, which is enclosed. If I can be of further assistance, please feel free to contact me at Doctor phone number(s): , Fax: [phone], Work: . Sincerely, MD Jarett Arrieta MD 04/25/2020 11:31:48 AM This report has been signed electronically.
--- NOTE | 2020-04-25 11:35 | OP.CCLET_ITS ---
04/25/2020 No Primary Care Physician Re : Colonoscopy procedure for Kathrin Alves Dear Care Physician This procedure was performed on Saturday, April 25, 2020. My impressions and recommendations are as follows: Impressions : - Erythematous mucosa in the rectum. No specimens collected. - The examination was otherwise normal. Recommendations : - Discharge patient to home. - Resume previous diet. - Use hydrocortisone suppository 25 mg 1 per rectum once a day. - Repeat colonoscopy (date not yet determined) for surveillance. - Continue present medications. My findings are described in the full procedure note, which is enclosed. If I can be of further assistance, please feel free to contact me at Doctor phone number(s): , Fax: [phone], Work: . Sincerely, MD Jarett Arrieta MD 04/25/2020 11:34:38 AM This report has been signed electronically.
--- NOTE | 2020-04-25 11:35 | OP.COLON_ITS ---
Patient Name: Kathrin Alves Procedure Date: 04/25/2020 11:16 AM Date of : 1990 Age: 30 Procedure: Colonoscopy Indications: Hematochezia Providers: Jarett Tripp MD Referring MD: Jarett Tripp MD Medicines: See the Anesthesia note for documentation of the administered medications Patient Profile: This is a 30 year old female. Refer to note in patient chart for documentation of history and physical. Last Colonoscopy: none. The patient's first colonoscopy is today. Complications: No immediate complications. Procedure: Pre-Anesthesia Assessment: - Prior to the procedure, a History and Physical was performed, and patient medications and allergies were reviewed. The patient's tolerance of previous anesthesia was also reviewed. The risks and benefits of the procedure and the sedation options and risks were discussed with the patient. All questions were answered, and informed consent was obtained. Prior Anticoagulants: The patient has taken no previous anticoagulant or antiplatelet agents. ASA Grade Assessment: II - A patient with mild systemic disease. After reviewing the risks and benefits, the patient was deemed in satisfactory condition to undergo the procedure. - Prior to the procedure, a History and Physical was performed, and patient medications and allergies were reviewed. The patient's tolerance of previous anesthesia was also reviewed. The risks and benefits of the procedure and the sedation options and risks were discussed with the patient. All questions were answered, and informed consent was obtained. Prior Anticoagulants: The patient has taken no previous anticoagulant or antiplatelet agents. ASA Grade Assessment: II - A patient with mild systemic disease. After reviewing the risks and benefits, the patient was deemed in satisfactory condition to undergo the procedure. After I obtained informed consent, the scope was passed under direct vision. Throughout the procedure, the patient's blood pressure, pulse, and oxygen saturations were monitored continuously. The colonoscope was introduced through the anus and advanced to the cecum, identified by appendiceal orifice and ileocecal valve. The colonoscopy was performed without difficulty. The patient tolerated the procedure well. The quality of the bowel preparation was good. Scope In: 11:17:41 AM Scope Withdrawal Time 0 hours 6 minutes 2 seconds Scope Out: 11:26:59 AM Total Procedure Duration Time 0 hours 9 minutes 18 seconds Findings: A localized area of mildly erythematous mucosa was found in the rectum. No biopsies or other specimens were collected for this exam. The exam was otherwise without abnormality. Impression: - Erythematous mucosa in the rectum. No specimens collected. - The examination was otherwise normal. Recommendation: - Discharge patient to home. - Resume previous diet. - Use hydrocortisone suppository 25 mg 1 per rectum once a day. - Repeat colonoscopy (date not yet determined) for surveillance. - Continue present medications. Procedure Code(s): --- Professional --- 47991, Colonoscopy, flexible; diagnostic, including collection of specimen(s) by brushing or washing, when performed (separate procedure) Diagnosis Code(s): --- Professional --- K62.89, Other specified diseases of anus and rectum K92.1, Melena (includes Hematochezia) CPT copyright 2017 [employer]. All rights reserved. The codes documented in this report are preliminary and upon clinical coder review may be revised to meet current compliance requirements. MD Jarett Arrieta MD 04/25/2020 11:34:38 AM This report has been signed electronically. Number of Addenda: 0 Note Initiated On: 04/25/2020 11:16 AM
== END 2020-04-25 12:21 | disposition home or self-care (01) ==
LOC: EN 09:59 → AC 10:00
PROVIDERS: Anesthesiology; Referring Provider Surgery; Visit Provider Surgery
PROC: 0DJD8ZZ Inspection of Lower Intestinal Tract, Via Natural or Artificial Opening Endoscopic (ICD-10-PCS; CPT 45378; principal; 2020-04-25 11:25)
DX: K29.50 Unspecified chronic gastritis without bleeding (principal); K92.0 Hematemesis; K92.1 Melena; Z11.59 Encounter for screening for other viral diseases; K62.89 Other specified diseases of anus and rectum; K31.89 Other diseases of stomach and duodenum; R10.13 Epigastric pain; K21.9 Gastro-esophageal reflux disease without esophagitis; F41.9 Anxiety disorder, unspecified; F17.200 Nicotine dependence, unspecified, uncomplicated; Z90.49 Acquired absence of other specified parts of digestive tract
CPT/HCPCS: 43239; 45378; 81025; 87635; 88305; 88342; 94799; J7120; J2405; U0003

== ENCOUNTER → 2022-11-12 | Outpatient (CLI) | payer OTHER, MEDICAID, SELFPAY ==
[2022-11-13 22:07] LABS: Chlamydia By Nucleic Acid AMP Negative (Negative)
[2022-11-14 19:46] LABS: Gonococcus By Nucleic Acid AMP Negative (Negative)
[2022-11-16 13:32] LABS: HPV APTIMA, High Risk Negative (Negative)
== END | disposition home or self-care (01) ==
LOC: LABSPEC 11:04
PROVIDERS: Referring Provider Nurse Practitioner Women's Health; Visit Provider Nurse Practitioner Women's Health
DX: Z12.4 Encounter for screening for malignant neoplasm of cervix (principal); Z11.3 Encounter for screening for infections with a predominantly sexual mode of transmission
CPT/HCPCS: 87491; 87591; 87624; 88175; G0145